=== PATIENT | female | born 1965 | race Caucasian/White ===

== ENCOUNTER → 2021-05-31 | Outpatient (CLI) | payer OTHER ==
[~2021-05-31] MED LIST: LIDOCAINE 1% Multi-Dose 20 ML VIAL. ID ONE; TRIAMCINOLONE PRES.FREE 40 MG/ML VIAL. INT ART ONE
--- NOTE | 2021-05-31 17:36 | KCIC ---
PROCEDURE: Left bicipital groove steroid injection under sound guidance INDICATION: Left shoulder pain FINDINGS: The risks, benefits and alternatives to the procedure were discussed with the patient. A timeout was performed to confirm the patient's identity and laterality of the injection. Utilizing sterile technique, ultrasound guidance and local anesthesia with 1% lidocaine, the left bic ipital groove was accessed utilizing a 25-gauge hypodermic needle. Subsequently, a mixture containing 1 cc lidocaine and 40 mg Kenalog was injected with the needle positioned both along the superficial and deep margins of the long head biceps tendon. There were no immediate complications. Tendinosis of the long head biceps which is heterogeneous and hypertrophic. Impression: 1. Technically successful left bicipital groove steroid injection under ultrasound guidance. 2. 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 Electronically signed by: DEISI MILLER MD (05/31/2021 5:34 PM) [id number]
== END | disposition home or self-care (01) ==
LOC: KCIC US 12:21
PROVIDERS: ATTEND Orthopaedic Surgery Sports Medicine
DX: M25.512 Pain in left shoulder (principal); Z88.5 Allergy status to narcotic agent; Z88.8 Allergy status to other drugs, medicaments and biological substances
CPT/HCPCS: 20611; J3301; J3490; 76942

== ENCOUNTER 2021-07-19 06:33 | Day surgery (SDC) | payer OTHER ==
[~2021-07-19] VITALS: Ht 165.1 cm; Wt 91.3 kg
[~2021-07-19 06:33] MED LIST changes: +AMLO10TA4 PO; +ATOR10TA PO; +DEXT20TA2 PO; +IV RINGERS,LACTATED 1000ML 1,000 ML IV SCH; -LIDOCAINE 1% Multi-Dose 20 ML VIAL. ID ONE; +MULT-121 PO; +OMEP20CA16 PO; +PROCHLORPERAZINE 10 MG/2 ML VIAL. IVP PRN; +SCOPOLAMINE 1.5MG PATCH. TD ONE; +TELM1TAB PO; -TRIAMCINOLONE PRES.FREE 40 MG/ML VIAL. INT ART ONE; +ceFAZolin 2GM PREMIX 2 GM/50 ML BAG IV ONE; +fentaNYL PF VIAL 100 MCG/2 ML VIAL IVP PRN
[2021-07-19 06:53] VITALS: BP 144/84
[2021-07-19] MEDS ORDERED: LIDOCAINE 1% PF 30 ML VIAL. INJ ONE (08:17)
[2021-07-19] MEDS ORDERED: BUPIVACAINE MPF 0.5% 30 ML VIAL. IJ ONE (08:17)
[2021-07-19] MEDS: fentaNYL PF VIAL 100 MCG/2 ML VIAL IVP PRN ×2 (09:16→09:40)
[2021-07-19] MEDS ORDERED: KETOROLAC 15 MG/ML VIAL. IVP ONE (09:45)
[2021-07-19 10:15] VITALS: BP 120/79
[2021-07-19] MEDS ORDERED: HYDROcodone/APAP 5/325MG 1 TAB TABLET PO ONE (10:45)
--- NOTE | 2021-07-19 10:47 | DISCH ---
DISCHARGE INSTRUCTIONS Condition on Discharge Condition on Discharge: Stable Activity After Discharge Activity Instructions for Disc: Other ROM activity Other activity instructions: Okay to use arm for light ADLs Bathing Instructions: Shower-keep dressing dry Lifting Instructions after Dis: No heavy lifting, No pulling or pushing Weight Bearing Status after Di: As tolerated Diet after Discharge Diet after Discharge: Regular Wound Incision Care Wound/Incision Care: Keep wound/cast CDI, Change dressing Other wound/incision instructi: Change dressing in 2 days, keep covered with clean and dry dressing Contacting the [facility] after DC Call your doctor for: Concerns you may have Follow-Up Follow up with: Surgeon in 2 weeks ERNESTO HOLLAND II, MD July 19, 2021 10:47
--- NOTE | 2021-07-19 10:51 | PDOC4 ---
Operative Note Operative Note Date of procedure: 07/19/2021 Surgeon: Cuauhtemoc Holland Assistants: Prateek Lopez and first tonya Hoyt Preoperative diagnosis: Left cubital tunnel syndrome Postop diagnosis: Same Procedure performed: Open left cubital tunnel release Anesthesia: General Complications: None Tourniquet time: Less than 20 minutes Blood loss: 10 mL Findings: No ulnar nerve subluxation with repetitive flexion and extension after cubital tunnel release Reason for procedure: Patient is a very pleasant 56-year-old with increasing weakness in her hand and paresthesias that has been developing chronically. She had tried and failed conservative therapies and was referred to myself for definitive management. Clinical and radiographic examination as well as EMG were consistent with the preoperative diagnosis and we had a discussion of the risk benefits alternatives and she wished to proceed. Description of procedure: Patient was greeted in the preoperative area by myself or the correct extremity was verified and marked. She was taken to the operative suite and antibiotics were started as she was brought back. Once in the operating, she was transferred on spine to the operating room table and secured to bed with all pressure points padded. The hand table was attached to the operating room table. Nonsterile tourniquet was secured in place to her left upper arm. She underwent successful induction of a general anesthetic. We then prepped and draped left upper extremity in her usual sterile fashion and conducted our standard preoperative timeout. After accomplishing this, I palpated marked anatomy and rodolfo a line for my planned incision just posterior to the medial epicondyle. Extremity was exsanguinated with an Esmarch and tourniquet insufflated to 250 mmHg. I incised skin with a scalpel and dissected subcutaneous tissue with tenotomy's using bipolar cautery for hemostasis as I proceeded. I identified the fascia and the cubital tunnel and incised the roof of the cubital tunnel into the proximal portion of the FDS and then into the triceps muscle. Repeated flexion and extension showed no subluxation of the nerve. Her nerve was normal in appearance. After this, I thoroughly irrigated out the operative field, tourniquet was let down, some skin edge bleeders were cauterized. I then closed subcutaneous tissue in a multilayered fashion with inverted interrupted 2-0 Vicryl followed by running 4-0 Monocryl in a buried subcuticular fashion for skin. Local anesthetic was injected into the periincisional soft tissues. No complications. All counts correct x2 prior to wound closure. At the conclusion, the arm and hand were cleansed and dried and a sterile bulky soft dressing was applied. She was awakened from anesthesia and transferred gently spine to the recovery room cart and taken to PACU in a stable and extubated condition. Postoperative plan is to discharge her home. Weightbearing restrictions were discussed with her and family and given in written form. I will see her back in 2 weeks, sooner should problem arise CUAUHTEMOC HOLLAND II, MD July 19, 2021 10:51
== END 2021-07-19 10:47 | disposition home or self-care (01) ==
LOC: SURG 06:33
PROVIDERS: ATTEND Orthopaedic Surgery Sports Medicine
DX: G56.22 Lesion of ulnar nerve, left upper limb (principal); I10 Essential (primary) hypertension; E78.00 Pure hypercholesterolemia, unspecified; G47.30 Sleep apnea, unspecified; K21.9 Gastro-esophageal reflux disease without esophagitis; Z90.710 Acquired absence of both cervix and uterus; Z98.890 Other specified postprocedural states; Z72.89 Other problems related to lifestyle; Z88.8 Allergy status to other drugs, medicaments and biological substances; Z79.899 Other long term (current) drug therapy; Z88.5 Allergy status to narcotic agent; Z88.6 Allergy status to analgesic agent
CPT/HCPCS: 64718; J0690; J3490; A4452; A4930; A6223; A6402; A6450